=== PATIENT | female | born 1975 | race Caucasian/White ===

== ENCOUNTER 2018-05-24 10:31 | Emergency (ER) | payer OTHER ==
[2018-05-24 10:52] VITALS: BP 146/75
--- NOTE | 2018-05-24 11:13 | ED ---
Back Pain - HPI Summary HPI Summary: 42 yr old female with the complaint of low left sided back pain, onset over the weekend, worse with bending and moving. She reports that she lifts a lot of heavy things at the [employer]. She denies ever having prior back issues, pains. Pain is moderate, and radiates down the left anterior thigh. She denies bowl and bladder incontinence. - History of Current Complaint Chief Complaint: UCBackPain Stated Complaint: WC-BACK INJURY Time Seen by Provider: 05/24/18 10:59 Hx Last Menstrual Period: SPORADIC Pain Intensity: 8 - Allergies/Home Medications Allergies/Adverse Reactions: Allergies Allergy/AdvReac Type Severity Reaction Status Date / Time No Known Allergies Allergy Verified 05/24/18 10:52 Home Medications: Home Medications Naproxen Sodium [Aleve] 440 mg PO BID 05/24/18 [History Confirmed 05/24/18] PMH/Surg Hx/FS Hx/Imm Hx - Surgical History Surgery Procedure, Year, and Place: TUBAL. GALLBLADDER Infectious Disease History: No Infectious Disease History: Denies: Traveled Outside the [place] in Last 30 Days - Family History Known Family History: Positive: None - Social History Occupation: Employed Full-time Alcohol Use: Weekly Substance Use Type: Reports: None Smoking Status (MU): Never Smoked Tobacco Review of Systems Constitutional: Negative Eyes: Negative Positive: Other - back pain Negative: Paresthesia, Numbness All Other Systems Reviewed And Are Negative: Yes Physical Exam Triage Information Reviewed: Yes Vital Signs On Initial Exam: Initial Vitals Temp Pulse Resp BP Pulse Ox 97.3 F 81 16 146/75 100 05/24/18 10:48 05/24/18 10:48 05/24/18 10:48 05/24/18 10:48 05/24/18 10:48 Vital Signs Reviewed: Yes Appearance: Positive: Well-Appearing, No Pain Distress Skin: Positive: Warm, Skin Color Reflects Adequate Perfusion Head/Face: Positive: Normal Head/Face Inspection Eyes: Positive: EOMI ENT: Positive: Pharynx normal Neck: Positive: Nontender Respiratory/Lung Sounds: Positive: Clear to Auscultation, Breath Sounds Present Cardiovascular: Positive: RRR. Negative: Murmur Abdomen Description: Positive: Nontender. Negative: Distended Musculoskeletal: Positive: Other - no CTLS tenderness Neurological: Positive: Sensory/Motor Intact, Alert, Oriented to Person Place, Time, CN Intact II-III, Normal Gait, Speech Normal Psychiatric: Positive: Normal - T[place]ha Coma Scale Best Eye Response: 4 - Spontaneous Best Motor Response: 6 - Obeys Commands Best Verbal Response: 5 - Oriented Coma Scale Total: 15 Diagnostics - Vital Signs Vital Signs Temp Pulse Resp BP Pulse Ox 05/24/18 10:48 97.3 F 81 16 146/75 100 - Laboratory Lab Statement: Any lab studies that have been ordered have been reviewed, and results considered in the medical decision making process. Back Pain Course/Dx - Course Course Of Treatment: 42 yr old female with low back pain. rx flexeril, motrin. Referred to [facility] for follow up. To [facility] for any worsening symptoms. - Diagnoses Provider Diagnoses: Back pain Discharge - Sign-Out/Discharge Documenting (check all that apply): Patient Departure All imaging exams completed and their final reports reviewed: No Studies - Discharge Plan Condition: Good Disposition: HOME Prescriptions: Cyclobenzaprine TAB* [Flexeril 10 MG TAB*] 10 mg PO TID PRN #10 tab PRN Reason: Pain Ibuprofen TAB* [Motrin TAB* 600 MG] 600 mg PO Q8H PRN #14 tab PRN Reason: Pain Patient Education Materials: Hypertension (ED), Back Pain (ED) Referrals: [facility] [Outside] - 2 Days Fritz Ritter MD [Medical Doctor] - No Primary Care Phys,NOPCP [Primary Care Provider] - Faraz Everett MD [Medical Doctor] - 05/25/18 - Billing Disposition and Condition Condition: GOOD Disposition: Home
== END 2018-05-24 11:26 | disposition home or self-care (01) ==
LOC: UCCORT 10:31
DX: X50.0XXA Overexertion from strenuous movement or load, initial encounter (principal); X50.9XXA Other and unspecified overexertion or strenuous movements or postures, initial encounter; Y93.89 Activity, other specified; Y92.89 Other specified places as the place of occurrence of the external cause; Y99.0 Civilian activity done for income or pay; M54.5 Low back pain
CPT/HCPCS: 99202; G0463